=== PATIENT | male | born 1960 | race Caucasian/White ===

== ENCOUNTER 2017-04-25 10:35 | Emergency (ER) | payer OTHER | END 2017-04-25 14:40 | disposition home or self-care (01) | LOC: FTE 10:35 | DX: L02.811 Cutaneous abscess of head [any part, except face] (principal); I10 Essential (primary) hypertension; E11.9 Type 2 diabetes mellitus without complications; F17.210 Nicotine dependence, cigarettes, uncomplicated | CPT/HCPCS: 10060; 99284-25 ==